=== PATIENT | male | born 1985 | race Two or more races ===

== ENCOUNTER → 2024-01-15 | Outpatient (REF) | payer OTHER | LOC: M SFHCDERM 17:57 | PROVIDERS: ATTEND Physician Assistant | DX: L82.1 Other seborrheic keratosis (principal) ==

== ENCOUNTER → 2024-03-13 | Outpatient (REF) | payer OTHER | LOC: M SFHCDERM 17:46 | PROVIDERS: ATTEND Physician Assistant | DX: D48.5 Neoplasm of uncertain behavior of skin (principal) ==